=== PATIENT | male | born 1995 | race Caucasian/White ===

== ENCOUNTER 2017-04-01 19:57 | Emergency (ER) | payer BC, OTHER ==
[~2017-04-01] VITALS: Ht 190.5 cm; Wt 78.8 kg
[2017-04-01 20:09] VITALS: TEMP 36.7; Ht 190.5 cm; Wt 78.8 kg
--- NOTE | 2017-04-01 21:26 | DIAGNOSTIC IMAGING REPORT ---
LEFT THIRD FINGER 3 VIEWS CLINICAL HISTORY: Third finger injury. FINDINGS: 3 views of the left third finger are obtained. No prior studies are available for comparison at the time of dictation. The skeletal structures are well mineralized. There is an age indeterminant comminuted fracture involving the tuft of the third finger. Overlying soft tissue edema is noted. No additional fracture is seen. The third metacarpophalangeal and interphalangeal joints are well-maintained. IMPRESSION: There is an age indeterminant comminuted fracture involving the tuft of the third distal phalanx with overlying soft tissue edema. Electronically signed by: Marcio Fiore M.D. 04/01/2017 9:25 PM Dictated Date/Time: 04/01/2017 9:24 PM
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
[2017-04-01 21:55] VITALS: BP 158/93; PULSE 86; O2SAT 95
== END 2017-04-01 21:58 | disposition home or self-care (01) ==
LOC: C.EDB 19:59 → C.EDD 21:58
DX: S69.92XA Unspecified injury of left wrist, hand and finger(s), initial encounter (principal); S80.01XA Contusion of right knee, initial encounter; S80.02XA Contusion of left knee, initial encounter; Y09 Assault by unspecified means; F17.200 Nicotine dependence, unspecified, uncomplicated